=== PATIENT | male | born 1960 | race Caucasian/White ===

== ENCOUNTER → 2019-04-20 14:57 | Outpatient (CLI) | payer MEDICARE ==
[2019-04-20 10:31] LABS: BASOPHILS % (AUTO) 0.9 % (0-1); EOSINOPHILS % (AUTO) 0.9 % (0-6); LYMPHOCYTES # (AUTO) 1.1 X10'3 (1.1-4.8); LYMPHOCYTES % (AUTO) 20.4 % (21-51); MEAN CORPUSCULAR HEMOGLOBIN 30.7 PG (27.0-31.0); MEAN CORPUSCULAR HGB CONC 34.1 g/dL (33.0-36.5); MEAN CORPUSCULAR VOLUME 90.1 FL (78-98); MEAN PLATELET VOLUME 9.2 FL (7.4-10.4); MONOCYTES # (AUTO) 0.4 X10'3 (0-0.9); MONOCYTES % (AUTO) 7.5 % (2-12); NEUTROPHILS # (AUTO) 3.9 X10'3 (1.8-7.7); NEUTROPHILS % (AUTO) 70.3 % (42-75); PRE OP HEMATOCRIT 43.3 % (42.0-52.0); PRE OP HEMOGLOBIN 14.8 g/dL (14.0-17.9); PRE OP PLATELET COUNT 246 X10'3 (140-440); RED BLOOD COUNT 4.81 X10'6 (4.70-6.10); RED CELL DISTRIBUTION WIDTH 13.4 % (11.5-14.5)
[2019-04-20 10:41] LABS: HEMOGLOBIN A1C 8.5 % (4.5-6.2)
[2019-04-20 10:47] LABS: ALBUMIN/GLOBULIN RATIO 1.2 (1.1-1.5); ALKALINE PHOSPHATASE 41 IU/L (46-116); BLOOD UREA NITROGEN 26 MG/DL (7-18); BUN/CREATININE RATIO 20.3 (5.4-32.0); CALCIUM 9.4 MG/DL (8.5-10.1); CHLORIDE 103 MMOL/L (99-107); CREATININE 1.28 MG/DL (0.60-1.10); PRE OP ALT 32 U/L (30-65); PRE OP ANION GAP 8 (8-16); PRE OP AST 18 U/L (10-37); PRE OP BILIRUB, TOTAL 0.3 MG/DL (0.0-1.0); PRE OP POTASSIUM 4.5 MMOL/L (3.4-5.1); PRE OP SODIUM 137 MMOL/L (135-145); TOTAL CARBON DIOXIDE 25.8 MMOL/L (24-32); TOTAL PROTEIN 7.3 G/DL (6.4-8.2); eGFR 58 ML/MIN
[2019-04-20 10:50] LABS: PRE OP GLUCOSE 216 MG/DL (70-104)
[~2019-04-20 14:57] MED LIST: CLOP75TA35 PO; DULO-31 PO; EMPA10TA PO; FENO134C9 PO; GABA-534 PO; GABA600T13 PO; GLIP-126 PO; HYDR-4353 PO; LOVA20TA2 PO; MELO-82 PO; METF500T PO; NITR0.4T SL; ZES2.5T PO
== END | disposition home or self-care (01) ==
LOC: PRE-OP 14:57 → EDSTATUS 04-21 07:30
PROVIDERS: ATTEND Orthopaedic Surgery
DX: Z01.818 Encounter for other preprocedural examination (principal); M75.122 Complete rotator cuff tear or rupture of left shoulder, not specified as traumatic
CPT/HCPCS: 36415; 71046; 80053; 83036; 85025; 85610; 85730; 93005

== ENCOUNTER 2019-07-25 05:34 | Day surgery (SDC) | payer MEDICARE ==
[2019-07-20 11:14] LABS: BASOPHILS # (AUTO) 0.1 X10'3 (0-0.2); BASOPHILS % (AUTO) 1.2 % (0-1); EOSINOPHILS # (AUTO) 0.1 X10'3 (0-0.9); EOSINOPHILS % (AUTO) 1.4 % (0-6); LYMPHOCYTES # (AUTO) 1.7 X10'3 (1.1-4.8); LYMPHOCYTES % (AUTO) 27.9 % (21-51); MEAN CORPUSCULAR HEMOGLOBIN 31.2 PG (27.0-31.0); MEAN CORPUSCULAR HGB CONC 34.2 g/dL (33.0-36.5); MEAN CORPUSCULAR VOLUME 91.2 FL (78-98); MEAN PLATELET VOLUME 8.9 FL (7.4-10.4); MONOCYTES # (AUTO) 0.5 X10'3 (0-0.9); MONOCYTES % (AUTO) 8.5 % (2-12); NEUTROPHILS # (AUTO) 3.6 X10'3 (1.8-7.7); PRE OP HEMATOCRIT 43.9 % (42.0-52.0); PRE OP PLATELET COUNT 247 X10'3 (140-440); RED BLOOD COUNT 4.82 X10'6 (4.70-6.10); RED CELL DISTRIBUTION WIDTH 12.8 % (11.5-14.5)
[2019-07-20 11:26] LABS: PRE OP PROTIME 10.3 SECONDS (9.0-12.0)
[2019-07-20 11:27] LABS: ALBUMIN 4.1 G/DL (3.4-5.0); ALBUMIN/GLOBULIN RATIO 1.3 (1.1-1.5); ALKALINE PHOSPHATASE 44 IU/L (46-116); BLOOD UREA NITROGEN 27 MG/DL (7-18); BUN/CREATININE RATIO 19.6 (5.4-32.0); CALCIUM 9.3 MG/DL (8.5-10.1); CHLORIDE 103 MMOL/L (99-107); CREATININE 1.38 MG/DL (0.60-1.10); PRE OP ALT 31 U/L (30-65); PRE OP ANION GAP 7 (8-16); PRE OP AST 14 U/L (10-37); PRE OP BILIRUB, TOTAL 0.3 MG/DL (0.0-1.0); PRE OP POTASSIUM 4.2 MMOL/L (3.4-5.1); PRE OP SODIUM 138 MMOL/L (135-145); TOTAL CARBON DIOXIDE 28.5 MMOL/L (24-32); TOTAL PROTEIN 7.2 G/DL (6.4-8.2); eGFR 53 ML/MIN
[2019-07-20 11:31] LABS: PRE OP GLUCOSE 218 MG/DL (70-104)
[~2019-07-25] VITALS: Ht 172.7 cm; Wt 99.8 kg
[2019-07-25] VITALS (8 sets, daily range): BP systolic 113–130; BP diastolic 66–77
[~2019-07-25 05:34] MED LIST changes: -MELO-82 PO; -NITR0.4T SL; +cefazolin/dext.iso 2gm/50ml 50 ML IV ONE; +famotidine 20mg tablet PO ONE; +ringers solution, lacted 1,000 ML IV SCH; +vancomycin inj 1,500 MG in normal saline 300ml IV soln IV ONE
[2019-07-25] MEDS ORDERED: LIDOcaine 1% (10mg/ml) 2ml vial ONE (06:04)
[2019-07-25] MEDS ORDERED: ROPIVAcaine 0.5% (5mg/ml) 30ml vial ONE (06:44)
[2019-07-25] MEDS ORDERED: ketorolac trometh. 30mg/ml inj. ONE (06:44)
[2019-07-25] MEDS ORDERED: BUPIVAcaine/PF 2.5 mg/ml (0.25%) 30ml vial ONE (07:18)
[2019-07-25] MEDS ORDERED: ePHEDrine 50MG/ML INJ. ONE (07:18)
[2019-07-25] MEDS ORDERED: BUPIVACAINE liposomal/PF 13.3 MG/ML vial IM ONE (07:18)
[2019-07-25] MEDS ORDERED: sevoflurane 250ml liquid IH ONE (07:18)
[2019-07-25] MEDS ORDERED: MIDAZolam 5mg/5ml vial ONE (07:22)
[2019-07-25] MEDS ORDERED: fentaNYL/PF 50MCG/1 ML 2ML syringe ONE (07:22)
[2019-07-25] MEDS ORDERED: morphine 4 MG/ML inj SYRINge IV PRN ×2 (08:55)
[2019-07-25] MEDS ORDERED: ringers solution, lacted 1,000 ML IV SCH (08:55)
[2019-07-25] MEDS ORDERED: ondansetron/PF 4mg/2ml inj IV PRN (08:55)
[2019-07-25] MEDS ORDERED: meperidine/PF 25mg/ml syringe IV PRN ×3 (08:55)
[2019-07-25] MEDS ORDERED: proCHLORperazine 10 MG/2 ml inj IV PRN (08:55)
[2019-07-25] MEDS ORDERED: propofol inj 20 ML IV ONE (09:17)
[2019-07-25] MEDS ORDERED: HYDROcodone/acetaminophen 10/325mg tab PO PRN (09:30)
--- NOTE | 2019-07-25 09:40 | NUR ---
ADMITTED TO PACU FROM OR ACCOMPANIED BY ANESTHESIA. INTIAL PHYSICAL ASSESSMENT DONE AND RECORDED. AWAKE AND RESPONSE ON ARRIVE YO PACU, REPORT RECEIVED FROM ANESTHESIA.
--- NOTE | 2019-07-25 10:45 | NUR ---
Discharge criteria met, discharge instructions given, demonstrates verbal understanding. Dr. Whitaker advised of blood sugar of 199 no orders received. Discharge orders also reviewed with . Visited by Dr. Morales prior to discharge. Advised to take pain meds tonight prior to retiring for evening. Discharged home in good condition.
== END 2019-07-25 10:45 | disposition home or self-care (01) ==
LOC: PAS 05:34
PROVIDERS: ATTEND Orthopaedic Surgery
DX: S46.012A Strain of muscle(s) and tendon(s) of the rotator cuff of left shoulder, initial encounter (principal); I10 Essential (primary) hypertension; I25.10 Atherosclerotic heart disease of native coronary artery without angina pectoris; E11.40 Type 2 diabetes mellitus with diabetic neuropathy, unspecified; G89.29 Other chronic pain; E66.9 Obesity, unspecified; Z68.34 Body mass index [BMI] 34.0-34.9, adult; Z79.899 Other long term (current) drug therapy; Z79.01 Long term (current) use of anticoagulants; Z95.5 Presence of coronary angioplasty implant and graft; Z79.4 Long term (current) use of insulin; Z98.890 Other specified postprocedural states; X58.XXXA Exposure to other specified factors, initial encounter; Y93.89 Activity, other specified; Y92.89 Other specified places as the place of occurrence of the external cause; Y99.8 Other external cause status
CPT/HCPCS: 15275; 29806; 29826; 29827; 36415; 80053; 82948; 85025; 85610; 85730; C1713; C9290; J1885; J2001; J2250; J2704; J3010; J3370; J3490; J7120; Q4116; A4618; A6449; A7000; J2795